=== PATIENT | male | born 1965 | race Caucasian/White ===

== ENCOUNTER 2020-01-28 09:27 | Emergency (ER) | payer MEDICAID ==
[~2020-01-28] VITALS: Ht 175.3 cm; Wt 94.0 kg
--- NOTE | 2020-01-28 09:45 | NUR ---
assumed care of pt. pt here fo SI and states that he has been off of his psych meds and is feeling depressed. pt statesthat he has a plan to drink eye drops to harm himself. pt is A&O x4. denies hallucinations or delusions. cooperaive. no injuries. no physical c/o. no family at bedside. pt has been stripped and placed into gown. room secured
[2020-01-28] MEDS ORDERED: LORazepam 1MG TABLET PO ONE (10:00)
--- NOTE | 2020-01-28 10:00 | NUR ---
Dr. Haywood has bene to bedside. per MD pt is not being put on Legal Hold. pt to be medicated for anxiety
[2020-01-28] MEDS ORDERED: LORazepam 1MG TABLET ONE (10:22)
--- NOTE | 2020-01-28 11:00 | NUR ---
no changes. pt resting in position of comfort. no new c/o. calm and cooperative
--- NOTE | 2020-01-28 11:49 | NUR ---
psych at bedside for eval
--- NOTE | 2020-01-28 12:15 | NUR ---
pt to be given medications and then D/C. awaiting Rx delivery from pharmacy
[2020-01-28] MEDS ORDERED: PROPRANOLOL 10 MG TABLET PO ONE (12:30)
[2020-01-28] MEDS ORDERED: LURASIDONE 20 MG TABLET PO ONE (12:30)
[2020-01-28] MEDS ORDERED: DULOXETINE 30 MG CAPSULE.DR PO ONE (12:30)
[2020-01-28 12:35] VITALS: BP 125/75
== END 2020-01-28 12:39 | disposition home or self-care (01) ==
LOC: ED 09:56
DX: F33.9 Major depressive disorder, recurrent, unspecified (principal); I10 Essential (primary) hypertension
CPT/HCPCS: 99284